=== PATIENT | male | born 1955 | race Hispanic/Latino ===

== ENCOUNTER → 2020-11-19 | Day surgery (SDC) | payer MEDICARE ==
[2020-11-17 12:05] LABS: BASOPHILS # (AUTO) 0.1 (0.0-0.1); BASOPHILS % 0.8 % (0.0-1.0); EOSINOPHILS # (AUTO) 0.4 (0.0-0.4); EOSINOPHILS % 4.9 % (0.0-6.0); HEMATOCRIT 38.2 % (38.2-49.6); HEMOGLOBIN 12.4 g/dL (14.0-18.0); LYMPHOCYTES # (AUTO) 2.2 (1.0-3.2); MEAN CORPUSCULAR HEMOGLOBIN 27.9 pg (28-32); MEAN CORPUSCULAR HGB CONC 32.5 g/dL (31-35); MONOCYTES # (AUTO) 0.9 (0.2-0.8); MONOCYTES % 11.3 % (4.4-11.3); NEUTROPHILS # (AUTO) 4.1 (2.1-6.9); NEUTROPHILS % 53.7 % (38.7-80.0); PLATELET COUNT 246 x10e3/uL (140-360); RED BLOOD COUNT 4.44 x10e6/uL (4.3-5.7); RED CELL DISTRIBUTION WIDTH 13.6 % (11.7-14.4)
[~2020-11-19] MED LIST: AMLODIPINE BESYL5 MG PO; ATROPINE SULFATE 1 MG/ML VIAL ONE; B&O 60MG R/S 60 MG SUPP PR ONE; CEFTRIAXONE 1 GM VIAL ONE; DEXAMETHASONE SOD PHOS INJ 4 MG/ML VIAL ONE; EPHEDRINE SULFATE INJ 50 MG/ML VIAL ONE; FENTANYL CITRATE/PF 100MCG/2 ML INJ ONE; FINASTERIDE5 MG PO; FLOMAX0.4 MG PO; GENTAMICIN 120MG/NS 100ML 0 ML ONE; GENTAMICIN 80MG/NS 100 ML 200 ML IV ONE; GLYCOPYRROLATE INJ 0.2 MG/ML VIAL ONE; IOPAMIDOL 300MG/ML 50ML INFUS..BTL IV ONE; LIDOCAINE HCL 2% LOCAL INJ 5 ML SDV VIAL INJ ONE; LIPITOR10 MG PO; MIDAZOLAM HCL 2 MG/2 ML VIAL ONE; NEURONTIN100 MG PO; ONDANSETRON HCL INJ 2MG/ML 2ML 2 MG/ML VIAL ONE; POVIDONE IODINE 0.05% 0.05 % ML PO ONE; PROPOFOL IV EMULSION 10 MG/ML 20 ML VIAL ONE; SEVOFLURANE INHAL SOLN 250 ML PEN BTL ONE; SODIUM CHLORIDE 0.9% 50ML 50 ML ONE; VITAMIN B122500 MCG PO; VITAMIN D310 MCG PO
[2020-11-19 11:30] VITALS: BP 136/78
== END | disposition home or self-care (01) ==
LOC: OR 07:03
PROVIDERS: ATTEND Urology
DX: N40.1 Benign prostatic hyperplasia with lower urinary tract symptoms (principal); N13.8 Other obstructive and reflux uropathy; R39.14 Feeling of incomplete bladder emptying; R35.1 Nocturia; R39.12 Poor urinary stream; N35.912 Unspecified bulbous urethral stricture, male; R80.9 Proteinuria, unspecified; R97.20 Elevated prostate specific antigen [PSA]; I12.9 Hypertensive chronic kidney disease with stage 1 through stage 4 chronic kidney disease, or unspecified chronic kidney disease; N18.9 Chronic kidney disease, unspecified; N47.1 Phimosis; N32.89 Other specified disorders of bladder; N28.1 Cyst of kidney, acquired; R00.1 Bradycardia, unspecified; N52.9 Male erectile dysfunction, unspecified; E66.9 Obesity, unspecified; Z01.810 Encounter for preprocedural cardiovascular examination; Z01.812 Encounter for preprocedural laboratory examination; Z01.818 Encounter for other preprocedural examination; Z68.36 Body mass index [BMI] 36.0-36.9, adult; Z87.891 Personal history of nicotine dependence
CPT/HCPCS: 52005; C9740; 36415; 71046; 74420; 85025; 93005; C1758; J0461; J0696; J1100; J1580; J2001; J2250; J2405; J3010; L8699

== ENCOUNTER 2024-10-22 07:19 | Inpatient (IN) | payer MEDICARE ==
[2024-10-17 12:25] LABS: BASOPHILS # (AUTO) 0.1 (0.0-0.1); BASOPHILS % 0.6 % (0.0-1.0); EOSINOPHILS # (AUTO) 0.6 (0.0-0.4); HEMOGLOBIN 12.4 g/dL (14.0-18.0); LYMPHOCYTES # (AUTO) 2.3 (1.0-3.2); LYMPHOCYTES % 20.2 % (18.0-39.1); MEAN CORPUSCULAR HEMOGLOBIN 29.1 pg (28-32); MEAN CORPUSCULAR HGB CONC 32.6 g/dL (31-35); MEAN CORPUSCULAR VOLUME 89.2 fL (81-99); MONOCYTES # (AUTO) 1.3 (0.2-0.8); MONOCYTES % 11.1 % (4.4-11.3); NEUTROPHILS # (AUTO) 7.2 (2.1-6.9); NEUTROPHILS % 62.4 % (38.7-80.0); PLATELET COUNT 283 x10e3/uL (140-360); RED BLOOD COUNT 4.26 x10e6/uL (4.3-5.7); RED CELL DISTRIBUTION WIDTH 14.6 % (11.7-14.4); WHITE BLOOD COUNT 11.57 x10e3/uL (4.8-10.8)
[2024-10-17 12:46] LABS: INR 0.87; PARTIAL THROMBOPLASTIN TIME 27.5 seconds (23.8-35.5); PROTHROMBIN TIME 12.7 seconds (11.9-14.5)
[2024-10-17 12:53] LABS: ANION GAP 14.5 mmol/L (8-16); CALCIUM 8.7 mg/dL (8.4-10.2); CREATININE, SERUM 2.26 mg/dL (0.72-1.25); POTASSIUM 4.5 mmol/L (3.5-5.1)
[~2024-10-22] VITALS: Ht 170.2 cm; Wt 98.4 kg
[~2024-10-22 07:19] MED LIST changes: +ALLOPURINOL100 MG PO; +ASPIRIN81 MG PO; -ATROPINE SULFATE 1 MG/ML VIAL ONE; -B&O 60MG R/S 60 MG SUPP PR ONE; -CEFTRIAXONE 1 GM VIAL ONE; +CLOPIDOGREL75 MG PO; -DEXAMETHASONE SOD PHOS INJ 4 MG/ML VIAL ONE; -EPHEDRINE SULFATE INJ 50 MG/ML VIAL ONE; -FENTANYL CITRATE/PF 100MCG/2 ML INJ ONE; -GENTAMICIN 120MG/NS 100ML 0 ML ONE; -GENTAMICIN 80MG/NS 100 ML 200 ML IV ONE; -GLYCOPYRROLATE INJ 0.2 MG/ML VIAL ONE; -IOPAMIDOL 300MG/ML 50ML INFUS..BTL IV ONE; +ISOSORBIDE DINI20 MG PO; +JARDIANCE10 MG PO; -LIDOCAINE HCL 2% LOCAL INJ 5 ML SDV VIAL INJ ONE; +LOSARTAN POTASS25 MG PO; -MIDAZOLAM HCL 2 MG/2 ML VIAL ONE; -ONDANSETRON HCL INJ 2MG/ML 2ML 2 MG/ML VIAL ONE; +OTEZLA30 MG PO; +OXYBUTYNIN CHLOR5 MG PO; +OZEMPIC0.25 MG/02 SC; -POVIDONE IODINE 0.05% 0.05 % ML PO ONE; -PROPOFOL IV EMULSION 10 MG/ML 20 ML VIAL ONE; -SEVOFLURANE INHAL SOLN 250 ML PEN BTL ONE; -SODIUM CHLORIDE 0.9% 50ML 50 ML ONE; +TIZANIDINE HCL2 M1 PO
[2024-10-22] MEDS: PIPERACILLIN/TAZOBACTAM 3.375 GM VIAL ONE (08:02)
[2024-10-22] MEDS: GENTAMICIN 80MG/NS 100 ML 200 ML IV ONE (08:02)
[2024-10-22] MEDS: SODIUM CHLORIDE 0.9% 1000ML 1,000 ML ONE (08:02)
[2024-10-22] MEDS ORDERED: PROPOFOL IV EMULSION 10 MG/ML 20 ML VIAL ONE ×2 (10:21→11:07)
[2024-10-22] MEDS ORDERED: LIDOCAINE HCL 2% LOCAL INJ 5 ML SDV VIAL INJ ONE (10:22)
[2024-10-22] MEDS ORDERED: FENTANYL CITRATE/PF 100MCG/2 ML INJ ONE ×2 (11:00→11:40)
[2024-10-22] MEDS ORDERED: ACETAMINOPHEN 1000 MG/100 ML 100 ML IV ONE (11:08)
[2024-10-22] MEDS ORDERED: SEVOFLURANE INHAL SOLN 250 ML PEN BTL ONE (11:08)
[2024-10-22] MEDS ORDERED: EPHEDRINE SULFATE INJ 50 MG/ML VIAL ONE (11:16)
[2024-10-22] MEDS ORDERED: ACETAMINOPHEN 1000 MG/100 ML IV PRN (12:45)
[2024-10-22] MEDS ORDERED: ONDANSETRON HCL INJ 2MG/ML 2ML 2 MG/ML VIAL IV PRN ×2 (12:45→16:30)
[2024-10-22] MEDS ORDERED: DIPHENHYDRAMINE HCL 25 MG CAP PO PRN ×2 (12:45→16:30)
[2024-10-22] MEDS: FENTANYL CITRATE/PF 100MCG/2 ML INJ ONE (13:10)
[2024-10-22 13:20] LABS: BASOPHILS # (AUTO) 0.1 (0.0-0.1); BASOPHILS % 0.5 % (0.0-1.0); EOSINOPHILS # (AUTO) 0.6 (0.0-0.4); EOSINOPHILS % 5.7 % (0.0-6.0); HEMATOCRIT 33.8 % (38.2-49.6); HEMOGLOBIN 11.2 g/dL (14.0-18.0); LYMPHOCYTES # (AUTO) 2.7 (1.0-3.2); LYMPHOCYTES % 28.2 % (18.0-39.1); MEAN CORPUSCULAR HEMOGLOBIN 29.1 pg (28-32); MEAN CORPUSCULAR HGB CONC 33.1 g/dL (31-35); MEAN CORPUSCULAR VOLUME 87.8 fL (81-99); MONOCYTES # (AUTO) 0.9 (0.2-0.8); MONOCYTES % 9.6 % (4.4-11.3); NEUTROPHILS # (AUTO) 5.4 (2.1-6.9); NEUTROPHILS % 55.6 % (38.7-80.0); PLATELET COUNT 227 x10e3/uL (140-360); RED BLOOD COUNT 3.85 x10e6/uL (4.3-5.7); RED CELL DISTRIBUTION WIDTH 14.6 % (11.7-14.4); WHITE BLOOD COUNT 9.73 x10e3/uL (4.8-10.8)
[2024-10-22 13:49] LABS: ANION GAP 13.4 mmol/L (8-16); CALCIUM 8.1 mg/dL (8.4-10.2); CREATININE, SERUM 2.06 mg/dL (0.72-1.25); POTASSIUM 4.4 mmol/L (3.5-5.1)
[2024-10-22] MEDS: ACETAMINOPHEN/CODEINE 300MG - 30MG TAB PO PRN (14:27)
[2024-10-22] MEDS: SODIUM CHLORIDE 0.9% 1000ML 1,000 ML IV SCH (14:32)
[2024-10-22 14:41] VITALS: BP 123/58; PULSE 51; RESP 18; O2SAT 96
[2024-10-22 15:44] VITALS: BP 123/80; PULSE 53; RESP 18; O2SAT 98
[2024-10-22 16:05] VITALS: PULSE 67; RESP 18; O2SAT 96
[2024-10-22] MEDS: SENNA-S TABLET PO SCH (16:11)
[2024-10-22] MEDS: PHENAZOPYRIDINE HCL 100 MG TAB PO PRN (16:11)
[2024-10-22] MEDS ORDERED: BENZONATATE 100 MG CAP PO PRN (16:30)
[2024-10-22] MEDS ORDERED: HYDRALAZINE HCL 20 MG/ML VIAL IV PRN (16:30)
[2024-10-22] MEDS ORDERED: ALBUTEROL/IPRATROPIUM 3 ML NEB NEB PRN (16:30)
[2024-10-22] MEDS: INSULIN LISPRO 100 UNIT/1 ML 3ML VIAL SQ SCH (16:30)
[2024-10-22] MEDS ORDERED: POTASSIUM CHLORIDE 20 MEQ TAB CR PO PRN (16:30)
[2024-10-22] MEDS ORDERED: DEXTROSE 50% SYRINGE 50 ML IV PRN ×2 (16:30)
[2024-10-22] MEDS ORDERED: ACETAMINOPHEN 325 MG TAB PO PRN (16:30)
[2024-10-22] MEDS ORDERED: LIDOCAINE 4% PATCH TP PRN (16:30)
[2024-10-22] MEDS ORDERED: Morphine 4mg INJECTION 4 MG/ML INJ IV PRN (16:30)
[2024-10-22] MEDS ORDERED: SIMETHICONE 80 MG CHEW PO PRN (16:30)
[2024-10-22 20:00] VITALS: BP 133/63; PULSE 54; RESP 16; TEMP 97.5; O2SAT 98
[2024-10-22 20:05] VITALS: PULSE 66; RESP 18; O2SAT 97
[2024-10-22] MEDS: ATORVASTATIN 10 MG TAB PO SCH (20:15)
[2024-10-22] MEDS ORDERED: MELATONIN 5 MG TABLET PO PRN (21:00)
[2024-10-23] VITALS (10 sets, daily range): BP systolic 83–137; BP diastolic 51–68; PULSE 58–67; RESP 16–20; TEMP 97.1–98.6; O2SAT 96–99
[2024-10-23] MEDS: PANTOPRAZOLE SOD 40 MG TABEC PO SCH (08:50)
[2024-10-23] MEDS ORDERED: LOSARTAN POTASSIUM 25 MG TAB PO SCH (09:00)
[2024-10-23] MEDS: ISOSORBIDE DINITRATE 20 MG TAB PO SCH (09:04)
[2024-10-23 09:27] LABS: BASOPHILS # (AUTO) 0.1 (0.0-0.1); BASOPHILS % 0.4 % (0.0-1.0); EOSINOPHILS # (AUTO) 0.3 (0.0-0.4); EOSINOPHILS % 2.1 % (0.0-6.0); HEMOGLOBIN 12.8 g/dL (14.0-18.0); LYMPHOCYTES # (AUTO) 1.5 (1.0-3.2); LYMPHOCYTES % 9.2 % (18.0-39.1); MEAN CORPUSCULAR HEMOGLOBIN 28.9 pg (28-32); MEAN CORPUSCULAR VOLUME 90.3 fL (81-99); MONOCYTES # (AUTO) 1.4 (0.2-0.8); MONOCYTES % 8.4 % (4.4-11.3); NEUTROPHILS # (AUTO) 13.1 (2.1-6.9); NEUTROPHILS % 79.4 % (38.7-80.0); PLATELET COUNT 277 x10e3/uL (140-360); RED BLOOD COUNT 4.43 x10e6/uL (4.3-5.7); RED CELL DISTRIBUTION WIDTH 14.8 % (11.7-14.4); WHITE BLOOD COUNT 16.48 x10e3/uL (4.8-10.8)
[2024-10-23 09:57] LABS: ANION GAP 14.7 mmol/L (8-16); CALCIUM 8.7 mg/dL (8.4-10.2); CREATININE, SERUM 2.09 mg/dL (0.72-1.25); POTASSIUM 4.7 mmol/L (3.5-5.1)
[2024-10-23] MEDS: TAMSULOSIN HCL 0.4 MG CAP PO SCH (10:00)
[2024-10-23] MEDS: EMPAGLIFLOZIN 10 MG TABLET PO SCH (10:00)
[2024-10-23] MEDS: SODIUM CHLORIDE 0.9% 500ML 500 ML IV ONE (10:35)
[2024-10-23] MEDS: OXYBUTYNIN CHLORIDE 5 MG TAB PO SCH (11:09)
[2024-10-23] MEDS: ALLOPURINOL 100 MG TAB PO SCH (11:10)
[2024-10-23] MEDS: FINASTERIDE 5 MG TAB PO SCH (11:10)
[2024-10-23] MEDS: GABAPENTIN 100 MG CAP PO SCH (14:13)
[2024-10-24] VITALS: BP 126/59; PULSE 64; RESP 20; TEMP 98.6; O2SAT 97
[2024-10-24 04:00] VITALS: BP 138/69; PULSE 57; RESP 18; TEMP 98.1; O2SAT 96
[2024-10-24 05:14] LABS: BASOPHILS # (AUTO) 0.1 (0.0-0.1); BASOPHILS % 0.5 % (0.0-1.0); EOSINOPHILS # (AUTO) 0.5 (0.0-0.4); EOSINOPHILS % 4.1 % (0.0-6.0); HEMATOCRIT 35.3 % (38.2-49.6); HEMOGLOBIN 11.3 g/dL (14.0-18.0); LYMPHOCYTES # (AUTO) 2.3 (1.0-3.2); LYMPHOCYTES % 17.8 % (18.0-39.1); MEAN CORPUSCULAR HEMOGLOBIN 28.7 pg (28-32); MEAN CORPUSCULAR VOLUME 89.6 fL (81-99); MONOCYTES # (AUTO) 1.7 (0.2-0.8); MONOCYTES % 13.2 % (4.4-11.3); NEUTROPHILS # (AUTO) 8.2 (2.1-6.9); NEUTROPHILS % 64.1 % (38.7-80.0); PLATELET COUNT 249 x10e3/uL (140-360); RED BLOOD COUNT 3.94 x10e6/uL (4.3-5.7); RED CELL DISTRIBUTION WIDTH 14.8 % (11.7-14.4); WHITE BLOOD COUNT 12.78 x10e3/uL (4.8-10.8)
[2024-10-24 05:58] LABS: ANION GAP 12.4 mmol/L (8-16); CALCIUM 8.5 mg/dL (8.4-10.2); CREATININE, SERUM 2.28 mg/dL (0.72-1.25); POTASSIUM 4.4 mmol/L (3.5-5.1)
[2024-10-24 07:34] VITALS: PULSE 68; RESP 18; O2SAT 96
[2024-10-24 08:00] VITALS: BP 138/69; PULSE 68; RESP 18; TEMP 98.1; O2SAT 96
[2024-10-24 08:10] VITALS: BP 138/69; PULSE 68; RESP 18; TEMP 98.1; O2SAT 96
[2024-10-24] MEDS: DOCUSATE SODIUM 100 MG CAP PO PRN (11:54)
[2024-10-24 13:57] VITALS: PULSE 64; RESP 18; O2SAT 98
== END 2024-10-24 17:05 | disposition home or self-care (01) | DRG 713 ==
LOC: OR 07:19 → PACU V 13:03 → MED/SURG 14:10
PROVIDERS: ADMIT Internal Medicine; ATTEND Internal Medicine
PROC: BT141ZZ Fluoroscopy of Kidneys, Ureters and Bladder using Low Osmolar Contrast (ICD-10-PCS; 2024-10-22)
PROC: 0VNTXZZ Release Prepuce, External Approach (ICD-10-PCS; 2024-10-22)
PROC: 0VB08ZZ Excision of Prostate, Via Natural or Artificial Opening Endoscopic (ICD-10-PCS; principal; 2024-10-22 10:59)
PROC: 0VB03ZX Excision of Prostate, Percutaneous Approach, Diagnostic (ICD-10-PCS; 2024-10-22 10:59)
PROC: 0T7D8ZZ Dilation of Urethra, Via Natural or Artificial Opening Endoscopic (ICD-10-PCS; 2024-10-22 10:59)
DX: N40.1 Benign prostatic hyperplasia with lower urinary tract symptoms (principal); N13.8 Other obstructive and reflux uropathy; N18.4 Chronic kidney disease, stage 4 (severe); N39.0 Urinary tract infection, site not specified; E11.22 Type 2 diabetes mellitus with diabetic chronic kidney disease; I12.9 Hypertensive chronic kidney disease with stage 1 through stage 4 chronic kidney disease, or unspecified chronic kidney disease; E11.42 Type 2 diabetes mellitus with diabetic polyneuropathy; R31.0 Gross hematuria; N47.5 Adhesions of prepuce and glans penis; N35.911 Unspecified urethral stricture, male, meatal; R33.8 Other retention of urine; E78.5 Hyperlipidemia, unspecified; E66.9 Obesity, unspecified; Z68.34 Body mass index [BMI] 34.0-34.9, adult; Z79.82 Long term (current) use of aspirin; Z79.02 Long term (current) use of antithrombotics/antiplatelets; Z79.84 Long term (current) use of oral hypoglycemic drugs; Z79.85 Long-term (current) use of injectable non-insulin antidiabetic drugs
CPT/HCPCS: 36415; 51700; 51798; 71046; 74420; 76872; 76998; 80048; 82948; 83735; 85025; 85610; 85730; 88305; 93005; 94799; 99252; C1758; J1580; J2003; J2470; J2543; J7030; J7040